=== PATIENT | male | born 1965 | race Caucasian/White ===

== ENCOUNTER 2018-06-15 15:06 | Emergency (ER) | payer OTHER | END 2018-06-15 16:14 | disposition home or self-care (01) | LOC: FTE 15:06 | DX: J06.9 Acute upper respiratory infection, unspecified (principal); R40.2412 Glasgow coma scale score 13-15, at arrival to emergency department; F17.210 Nicotine dependence, cigarettes, uncomplicated | CPT/HCPCS: 99283; Z7502 ==